=== PATIENT | male | born 1950 | race African-American/Black ===

== ENCOUNTER 2020-12-30 12:02 | Emergency (ER) | payer MEDICARE, MEDICAID ==
[2020-12-30 23:45] LABS: SARS-CoV-2 PCR by NAA DETECTED (NotDetected)
== END 2020-12-30 13:07 | disposition home or self-care (01) ==
LOC: CSHERS 12:02
DX: U07.1 COVID-19 (principal); I10 Essential (primary) hypertension; Z79.899 Other long term (current) drug therapy
CPT/HCPCS: U0003; U0005; 99283

== ENCOUNTER 2021-12-05 16:49 | Emergency (ER) | payer MEDICARE, MEDICAID ==
[2021-12-05] MEDS ORDERED: Fluorescein Opthalmic Strip ONE (17:15)
[2021-12-05] MEDS ORDERED: Tetracaine 0.5% PF 4 ML BOT ONE (17:15)
== END 2021-12-05 17:31 | disposition home or self-care (01) ==
LOC: CSHERS 16:49
DX: H10.9 Unspecified conjunctivitis (principal); I10 Essential (primary) hypertension
CPT/HCPCS: 99283

== ENCOUNTER 2022-11-12 11:00 | Outpatient (CLI) | payer MEDICARE, MEDICAID | END 2022-11-12 11:01 | disposition home or self-care (01) | LOC: CSHRAD 11:00 | PROVIDERS: ATTEND Psychiatry & Neurology Neurology | DX: G62.9 Polyneuropathy, unspecified (principal) ==

== ENCOUNTER 2023-06-25 09:55 | Emergency (ER) | payer MEDICARE, MEDICAID ==
[2023-06-25 12:37] LABS: #Eosinphils 0.1 10x3/uL (0.0-0.5); #Monocytes 0.3 10x3/uL (0.0-1.1); %Basophils 0.6 % (0.0-2.0); %Eosinophils 3.3 % (0.0-6.0); %Lymphocytes 30.4 % (18.0-47.0); %Monocytes 9.5 % (0.0-10.0); %Neutrophils 55.9 % (40.0-75.0); Hematocrit 38.9 % (38.8-50.0); Hemoglobin 13.2 g/dL (13.5-17.5); Mean Corpuscular HGB CONC 33.9 g/dL (32.0-36.0); Mean Corpuscular Hemoglobin 29.6 pg (27.0-33.0); Mean Corpuscular Volume 87.2 fl (81.2-95.1); Mean Platelet Volume 9.8 fl (7.4-10.4); Platelet Count 168 10x3/uL (150-450); RBC Distribution Width 13.8 % (11.5-14.5); Red Blood Cell (RBC) Count 4.46 10x6/uL (4.32-5.72); White Blood Cell (WBC) Count 3.6 10x3/uL (3.5-10.5)
[2023-06-25 12:48] LABS: ALT (SGPT) 9 U/L (8-55); AST (SGOT) 16 U/L (5-34); Albumin 4.6 g/dL (3.4-4.8); Alkaline Phosphatase 73 U/L (40-110); Anion Gap 10 mmol/L (10-20); BUN (Urea Nitrogen) 14 mg/dL (8.4-25.7); Bilirubin, Total 0.4 mg/dL (0.2-1.2); Calc. Creatinine Clearance 0 mL/min (70-130); Carbon Dioxide 28 mmol/L (23-31); Chloride 107 mmol/L (98-107); Estimated GFR 58; Globulin 2.4 g/dL (2.4-3.5); Glucose 109 mg/dL (83-110); Potassium 3.7 mmol/L (3.5-5.1); Sodium 141 mmol/L (136-145)
[2023-06-25] MEDS ORDERED: levETIRAcetam 500 MG TAB ONE (13:55)
== END 2023-06-25 14:05 | disposition home or self-care (01) ==
LOC: CSHERS 09:55
DX: R56.9 Unspecified convulsions (principal); R03.0 Elevated blood-pressure reading, without diagnosis of hypertension; R20.0 Anesthesia of skin; I10 Essential (primary) hypertension; Z55.6 Problems related to health literacy; Z79.899 Other long term (current) drug therapy
CPT/HCPCS: 70450; 80053; 84484; 85025; 93005

== ENCOUNTER 2025-03-14 16:59 | Emergency (ER) | payer MEDICARE, MEDICAID ==
[~2025-03-14 16:59] MED LIST: Iopamidol 370 76% 100 ML VIAL ONE
[2025-03-14 17:30] LABS: #Basophils Less than 0.03 10x3/uL (0.0-0.2); #Eosinophils 0.19 10x3/uL (0.0-0.5); #Monocytes 0.31 10x3/uL (0.0-1.1); #Neutrophils 1.96 10x3/uL (1.5-8.4); %Basophils 0.5 % (0.0-2.0); %Eosinophils 4.9 % (0.0-6.0); %Lymphocytes 35.8 % (18.0-47.0); %Monocytes 8.0 % (0.0-10.0); %Neutrophils 50.8 % (40.0-75.0); Hematocrit 38.5 % (38.8-50.0); Hemoglobin 12.5 g/dL (13.5-17.5); Mean Corpuscular Hemoglobin 27.8 pg (27.0-33.0); Mean Corpuscular Volume 85.6 fL (81.2-95.1); Platelet Count 169 10x3/uL (150-450); Red Blood Cell (RBC) Count 4.50 10x6/uL (4.32-5.72); White Blood Cell (WBC) Count 3.86 10x3/uL (3.5-10.5)
[2025-03-14 17:45] LABS: ALT (SGPT) 13 U/L (Less than 45); AST (SGOT) 21 U/L (11-34); Acetaminophen Less than 10 mcg/mL (Less than 10); Albumin 4.6 g/dL (3.1-4.5); Alkaline Phosphatase 60 U/L (40-110); Anion Gap 13 mmol/L (10-20); BUN (Urea Nitrogen) 13 mg/dL (8.4-25.7); Bilirubin, Total 0.4 mg/dL (0.3-1.2); Calc. Creatinine Clearance 0 mL/min (70-130); Calcium 9.4 mg/dL (7.8-10.44); Carbon Dioxide 28 mmol/L (23-31); Chloride 107 mmol/L (98-107); Globulin 2.8 g/dL (2.4-3.5); Glucose 88 mg/dL (83-110); Potassium 3.9 mmol/L (3.5-5.1); Salicylate Less than 8.0 mg/dL (Less than 8.0); Sodium 144 mmol/L (136-145)
[2025-03-14 17:49] LABS: Troponin I Less than 0.010 ng/mL (< 0.028)
[2025-03-14 18:52] LABS: Cocaine Metabolite Screen Negative (Negative); THC/Cannabinoid Screen PRELIM POSITIVE (Negative); Tricyclic Screen Negative (Negative)
== END 2025-03-14 20:15 ==
LOC: CSHERS 16:59
DX: R29.898 Other symptoms and signs involving the musculoskeletal system (principal); R29.700 NIHSS score 0; I10 Essential (primary) hypertension
CPT/HCPCS: 70450; 70496; 70498; 71045; 80053; 80306; 80307; 82962; 84484; 85025; 93005; 99284; Q9967; 36416